=== PATIENT | female | born 1990 | race Caucasian/White ===

== ENCOUNTER → 2019-03-11 15:01 | Outpatient (CLI) | payer OTHER, SELFPAY ==
[2019-03-11 15:35] LABS: Appearance Urine UA SL CLOUDY; Bilirubin Urine UA NEGATIVE (NEGATIVE); Color Urine UA YELLOW; Glucose Urine UA NEGATIVE (Negative); Ketones Urine UA NEGATIVE (NEGATIVE); Leukocyte Esterase Urine UA NEGATIVE (NEGATIVE); Nitrite Urine UA NEGATIVE (Negative); Occult Blood Urine UA NEGATIVE (Negative); Protein Urine UA NEGATIVE (Negative); Urobilinogen Urine UA 0.2 E.U./dL (0.2)
[2019-03-11 15:41] LABS: pH Urine UA 5.5 (4.5-8.0)
[2019-03-11 15:42] LABS: Bacteria Urine Moderate (10-30); RBC Urine 1-5/HPF (0-5/HPF); Squamous Epithelial Cell Urine >30 /HPF (0-5/HPF); Transitional Epi Cells Urine 1-5/HPF (0-5/HPF); Urine Comments NOT A CLEAN CATCH; WBC Urine 1-5/HPF (0-5/HPF)
[2019-03-11 15:44] LABS: Add Manual Diff / Slide Review NO; Basophils Absolute Auto 0 /uL (0-100); Basophils Percent Auto 0.5 % (0-2); Eosinophils Absolute Auto 100 /uL (0-450); Eosinophils Percent Auto 1.1 % (2-4); Hematocrit 41.7 % (36-46); Hemoglobin 14.3 g/dL (12.0-16.0); Lymphocytes Absolute Auto 2000 /uL (1100-4500); Lymphocytes Percent Auto 25.1 % (25-40); Mean Corpuscular HGB Conc 34.4 % (30-36); Mean Corpuscular Hemoglobin 31.3 PG (26-34); Mean Corpuscular Volume 91.1 fL (80-100); Monocytes Absolute Auto 400 /uL (0-900); Monocytes Percent Auto 5.3 % (3-14); Neutrophils Absolute Auto 5500 /uL (1500-7000); Platelet Count 193 X10^3/uL (150-400); Red Blood Cell Count 4.58 X10^6/uL (4.0-5.2); Red Cell Distribution Width 13.1 % (11.6-14.8); White Blood Cell Count 8.1 X10^3/uL (4.5-11.0)
[2019-03-11 16:47] LABS: Hepatitis B Surface Antigen NEGATIVE s/c (NEGATIVE)
[2019-03-11 17:04] LABS: HIV 1 & 2 Ab/Ag 4th Gen Combo NEGATIVE (NEGATIVE); Hep C Virus Ab w/Reflex Quant NEGATIVE s/c (NEGATIVE)
[2019-03-13 17:38] LABS: RPR Screen Nonreactive (Nonreactive)
== END ==
PROVIDERS: Visit Provider Family Medicine
DX: Z34.81 Encounter for supervision of other normal pregnancy, first trimester (principal)
CPT/HCPCS: 36415; 80055; 81001; 86787; 86803; 86850; 86900; 86901; 87086; 87389

== ENCOUNTER → 2019-05-24 13:33 | Outpatient (CLI) | payer OTHER, SELFPAY ==
--- NOTE | 2019-05-24 13:36 | DI.US.S_ITS ---
PROCEDURE: US OB >= 14 WEEKS FETUS INDICATIONS: ANATOMY OUTSIDE/PRIOR DATING DATA: Last menstrual period (LMP): Unknown. LMP-based estimated date of delivery (HARDEEP): Unknown. First dating scan (date and location): 05/20/19 Estimated date of delivery (HARDEEP) from first dating scan: 10/11/19. TECHNIQUE: Real-time scanning was performed of the fetus, with image documentation and biometric measurements. Endovaginal scanning: Not performed COMPARISON: None. FINDINGS: General: A single living intrauterine gestation is present. Presentation: Breech. Placenta: Placental position is posterior, without previa. Amniotic fluid index: 12.4 cm, normal range is 5-24 cm. heart rate: 152 beats per minute. Maternal cervical canal: 4.5 cm long. Normal lower limit is 2.5 cm. biometrics: Biparietal diameter: 4.6 cm, 19 weeks 6 days Head circumference: 17.4 cm, 19 weeks 6 days Abdominal circumference: 15.0 cm, 20 weeks 2 days Femur length: 2.1 cm, 19 weeks 5 days Estimated gestational age from initial scan: not applicable. Composite gestational age from present scan: 20 weeks zero days Estimated weight and percentile: 324 g Measurement variability for biometric dating: +/- 7 days from 14 weeks to 15 weeks 6 days gestation, +/- 10 days from 16 weeks to 21 weeks 6 days gestation, +/- 2 weeks from 22 weeks to 27 weeks 6 days gestation, +/- 3 weeks for 28 weeks gestation or later. weight reference: 4500 g or EFW >90/95% is considered macrosomia or large for gestational age. EFW <10% is small for gestational age. EFW 5% or less is considered intra-uterine growth restriction. Anatomic survey: Neuro: Ventricles are non-dilated at less than 10 mm. Cisterna magna is normal at 3-11 mm. Cerebellum is normal in size and morphology. Nuchal skin fold: Normal at less than 6 mm between 14-21 weeks gestational age. Face: Nose and lips, facial profile are normal. Spine: No evidence for spina bifida. Heart: 4-chambered heart is present, with normal ventricular outflow tracts. Diaphragm: Diaphragm is intact. Stomach: Left-sided stomach is present. Kidneys: No hydronephrosis. Normal is less than 5 mm in 2nd trimester, less than 7 mm in 3rd trimester. Cord: 3-vessel cord has orthotopic insertion. Bladder: Normal in size. Extremities: All 4 extremities identified. IMPRESSION: Single living intrauterine fetus in breech presentation. Gestational age measures 20 weeks and zero days by today's ultrasound measurements. Growth assessment precluded by lack of first trimester ultrasound or LMP. nose/lips not well seen secondary to gestational position. sacral spine not well seen also due to position. Recommend followup. Nonspecific intraventricular echogenic focus. Recommend correlation with aneuploidy screening results and maternal risk factors. Remaining anatomic survey within normal limits Dictated by: Rupert Yeh M.D. on 05/24/2019 at 17:27 Approved by: Rupert Yeh M.D. on 05/24/2019 at 17:31
== END ==
PROVIDERS: Visit Provider Family Medicine
DX: Z34.82 Encounter for supervision of other normal pregnancy, second trimester (principal); Z3A.20 20 weeks gestation of pregnancy
CPT/HCPCS: 76811

== ENCOUNTER → 2019-07-16 10:38 | Outpatient (CLI) | payer OTHER, SELFPAY ==
[2019-07-16 13:14] LABS: Hematocrit 38.2 % (36-46); Hemoglobin 12.7 g/dL (12.0-16.0)
[2019-07-16 15:22] LABS: GTT (PREG) 1 Hour PP 50gm Dose 95 mg/dL (76-139)
== END ==
PROVIDERS: PCP Family Medicine; Referring Provider Family Medicine; Visit Provider Family Medicine
DX: Z34.81 Encounter for supervision of other normal pregnancy, first trimester (principal); Z3A.26 26 weeks gestation of pregnancy
CPT/HCPCS: 36415; 82950; 85014; 85018

== ENCOUNTER → 2019-09-10 12:28 | Outpatient (CLI) | payer OTHER, SELFPAY ==
[2019-09-11 12:05] LABS: Strep Grp B PCR POS for Grp B Strep
== END ==
PROVIDERS: PCP Family Medicine; Visit Provider Family Medicine
DX: Z34.83 Encounter for supervision of other normal pregnancy, third trimester (principal)
CPT/HCPCS: 87653

== ENCOUNTER 2019-10-13 18:17 | Inpatient (IN) | payer OTHER, SELFPAY ==
[2019-10-13 19:06] LABS: Add Manual Diff / Slide Review NO; Basophils Absolute Auto 100 /uL (0-100); Basophils Percent Auto 0.5 % (0-2); Eosinophils Absolute Auto 100 /uL (0-450); Eosinophils Percent Auto 0.9 % (2-4); Hematocrit 38.7 % (36-46); Hemoglobin 13.1 g/dL (12.0-16.0); Lymphocytes Absolute Auto 3100 /uL (1100-4500); Lymphocytes Percent Auto 25.1 % (25-40); Mean Corpuscular HGB Conc 33.9 % (30-36); Mean Corpuscular Hemoglobin 31.8 PG (26-34); Mean Corpuscular Volume 93.6 fL (80-100); Monocytes Absolute Auto 900 /uL (0-900); Monocytes Percent Auto 7.2 % (3-14); Neutrophils Absolute Auto 8200 /uL (1500-7000); Neutrophils Percent Auto 66.3 % (50-75); Platelet Count 156 X10^3/uL (150-400); Red Blood Cell Count 4.14 X10^6/uL (4.0-5.2); Red Cell Distribution Width 13.3 % (11.6-14.8); White Blood Cell Count 12.4 X10^3/uL (4.5-11.0)
[2019-10-13] MEDS: LACTATED RINGERS 1,000 ML 100 ML IV (19:49)
[2019-10-13] MEDS: PENICILLIN G POTASSIUM 5,000,000 UNIT in DEXTROSE 5% IN WATER 250 ML IV (19:49)
[2019-10-13 20:46] VITALS: BP 138/87
[2019-10-13] MEDS: miSOPROStoL 25 MCG TABLET VAG (21:10)
[2019-10-13 21:51] LABS: COVID19 -Nasal RAPID Negative (Negative)
[2019-10-14] MEDS: PENICILLIN G POTASSIUM 3,000,000 UNIT/50 ML FROZ.PIGGY 100 UNIT IV ×4 (00:16→13:35)
[2019-10-14] MEDS: miSOPROStoL 25 MCG TABLET VAG ×2 (00:59→05:00)
[2019-10-14] MEDS: ONDANSETRON 4 MG/2 ML INJ IV (01:16)
--- NOTE | 2019-10-14 08:33 | PM.OBHP.1 ---
OB HPI Date/Time Date of admission: 10/13/19 Date Patient Seen: 10/14/19 Time Patient Seen: 08:00 History of Present Condition Chief complaint: EVAL OF LABOR : 2 Para: 1 Estimated Date of Delivery: 10/06/19 Estimated Gestational Age (weeks): 41w1d Narrative: Kaur Bedolla is a 29 year old at 41w1d who presented for IOL for post-dates. She denies any contractions, only mild intermittent cramping. No LOF or vaginal bleeding. She is feeling her baby move regularly. Her has been uncomplicated. Indications Indication for induction OB: post dates History of Present care: initiated at week # (10) and pounds weight gain (66) Ultrasounds: normal 1st trimester US and normal mid trimester US Obstetrical complications: none Medical complications: none Preadmission Labs Blood type: A (+) positive -: Antibody screen: negative, GBS status: positive, HBsAG: negative, HIV: negative and RPR/VDLR: negative -: Rubella: immune and Varicella: immune HCT: 38.7 HCAB: negative 1 hr GTT: 95 Prior (ies) History: 05/31/12 - at 40wks, 7lb8oz male ([place]), IOL Evaluation Evaluation Baseline heart rate: 150 Variability: Moderate (11-25) monitor accelerations: Present monitor decelerations: Absent Contraction Frequency (minutes): 5 Uterine Contraction Intensity: Mild Category of Tracing: I Cervical dilation (cm): 3 Cervical effacement (%): 80 station: -2 Laboratory results: Laboratory Tests 10/13/19 10/13/19 10/13/19 18:50 18:50 19:05 WBC 12.4 H RBC 4.14 Hgb 13.1 Hct 38.7 MCV 93.6 MCH 31.8 MCHC 33.9 RDW 13.3 Plt Count 156 Neut % (Auto) 66.3 Lymph % (Auto) 25.1 [place] % (Auto) 7.2 Eos % (Auto) 0.9 L Baso % (Auto) 0.5 Neut # (Auto) 8200 H Lymph # (Auto) 3100 [place] # (Auto) 900 Eos # (Auto) 100 Baso # (Auto) 100 COVID-19 PCR Negative Blood Type A Positive Antibody Screen Negative [facility] Medical History (Updated 04/08/19 @ 19:41 by Candelaria Roa) Chicken pox (Resolved ~1996) Hearing loss (Acute) Irregular menstrual cycle (Acute ~2013) Psoriasis (Acute) Surgical History (Updated 04/08/19 @ 19:41 by Candelaria Roa) Anesthesia (Resolved) H/O foot surgery (Acute) History of tonsillectomy and adenoidectomy (Acute) S/P ear surgery (Acute) Family History (Updated 03/11/19 @ 13:08 by Wanda Ruggiero RN) Mother Diabetes mellitus Hypothyroid Father Hypertension Social History (Updated 03/11/19 @ 14:03 by Yancy Maldonado LPN) marital status: number of children: 2 household members: spouse pets and animals: Yes (X 2 Dogs) education level: college (some College) occupational status: employed ([employer]) current occupational exposures/hazards: No special blayne needs: No seatbelt use: always helmet use: Yes water heater temp set < 120 deg: Yes working smoke detector in home: Yes fire extinguisher in home: Yes carbon monox detector in home: Yes firearms in home: Yes do you feel safe at home: Yes Smoking Status: Never smoker Tobacco: How many years used: 6 second hand exposure: No alcohol intake: former (years ago) substance use type: does not use during the past year weight has: remained stable well-balanced diet: daily or most days daily servings fruits/ve or more times/day caffeine: Yes eating out: rarely or never Type(s) of exercise: walking frequency: 3-4 times per week duration: 30-45 minutes/day Meds Home Medications and Allergies Home Medications Medication Instructions Recorded Confirmed Type prenat.vits,livan,jgd-xvhl-ofopl 1 tab PO DAILY 03/11/19 10/13/19 History calcium carbonate 200 mg calcium 200 mg PO TID 09/17/19 10/13/19 History (500 mg) chewable tablet Allergies Allergy/AdvReac Type Severity Reaction Status Date / Time No Known Drug Allergies Allergy Verified 10/08/19 09:48 Exam Narrative Exam Narrative: Gen: NAD, sitting comfortably in bed, appears well CV: RRR, no murmurs Resp: clear to auscultation bilaterally Abd: soft, nondistended, gravid Ext: trace edema Objective Labs Result Diagrams: 10/13/19 18:50 Labs: Laboratory Results - last 24 hr 10/13/19 10/13/19 10/13/19 18:50 18:50 19:05 WBC 12.4 H RBC 4.14 Hgb 13.1 Hct 38.7 MCV 93.6 MCH 31.8 MCHC 33.9 RDW 13.3 Plt Count 156 Neut % (Auto) 66.3 Lymph % (Auto) 25.1 [place] % (Auto) 7.2 Eos % (Auto) 0.9 L Baso % (Auto) 0.5 Neut # (Auto) 8200 H Lymph # (Auto) 3100 [place] # (Auto) 900 Eos # (Auto) 100 Baso # (Auto) 100 COVID-19 PCR Negative Blood Type A Positive Antibody Screen Negative Assessment and Plan Assessment and Plan Assessment and Plan narrative: 29yo at 41w1d here for IOL for post-dates. uncomplicated. GBS positive, Rh positive. Received 3 doses cytotec overnight. Fay score 8. - Expectant management, anticipate - Epidural for pain control when desired - FHT reassuring - GBS positive, penicillin prophylaxis initiated - Start pitocin, titrate as tolerated. Plan to AROM once head more engaged.
[2019-10-14] MEDS: OXYTOCIN PREMIX 30 UNIT/500 ML PLAST..BAG IV (09:25)
--- NOTE | 2019-10-14 14:09 | PM.OBPNLAB ---
Date/Time Date Patient Seen: 10/14/19 Time Patient Seen: 12:30 Pain Control Pain control: tolerating well Pelvic Exam Dilation (cm): 3 Effacement (%): 80 station: -2 Contractions Monitor mode: External Pitocin rate (mU/min): 10 Contraction frequency (min): 3 Contraction pattern: Irregular Contraction intensity: Mild Status Heart Rate Baseline: 145 Monitor Accelerations: Present Monitor Decelerations: Absent Monitor Variability: Moderate Assessment and Plan Comments: 29yo at 41w1d here for IOL for post-dates. uncomplicated. GBS positive, Rh positive. Received 3 doses cytotec overnight, now on pitocin. SROM with clear fluid present. - Expectant management, anticipate - Epidural for pain control when desired - FHT reassuring - GBS positive, penicillin prophylaxis ongoing - Continue pitocin, titrate as tolerated.
[2019-10-14] MEDS: LACTATED RINGERS 1,000 ML 100 ML IV (14:24)
--- NOTE | 2019-10-14 16:41 | P.PNOB_ITS ---
Date/Time Date Patient Seen: 10/14/19 Time Patient Seen: 16:41 Pain Control Pain control: epidural Pelvic Exam Dilation (cm): 10 Effacement (%): 100 station: +1 Comments: After informed consent, AROM performed with production of meconium- stained fluid. Contractions Monitor mode: External Pitocin rate (mU/min): 14 Contraction frequency (min): 2 Contraction pattern: Irregular Contraction intensity: Mild Status status: Category l Heart Rate Baseline: 120 Monitor Accelerations: Present Monitor Decelerations: Absent Monitor Variability: Moderate Assessment and Plan Comments: 29yo at 41w1d here for IOL for post-dates. uncomplicated. GBS positive, Rh positive. Received 3 doses cytotec overnight, now on pitocin. SROM with clear fluid present, now with AROM of forebag with meconium present. - Expectant management, anticipate - Epidural in place for pain control - FHT reassuring - GBS positive, penicillin prophylaxis ongoing - Continue pitocin, titrate as tolerated.
--- NOTE | 2019-10-14 18:42 | P.PCNOB_ITS ---
Labor & Delivery Delivery date: 10/14/19 Intrapartal events: None Cervical ripening method: per misoprostal protocol Induction method: per pitocin protocol Delivery augmentation: rupture of membranes Delivery monitor: external FHT Route of delivery: Episiotomy description: None L&D Laceration Description: Labial Estimated blood loss (mL): 200 Anesthesia type: Epidural Complications: None Narrative: PROCEDURE: at 41w0d presented for post-dates IOL and was admitted to Labor and Delivery. The patient progressed through the 1st stage over 5 hours. She received 3 doses of cytotec, and was then started on pitocin. The pt had SROM with production of a small amount of fluid, and later AROM of a forebag with significant meconium-stained fluid. Pain was controlled with an epidural. She received adequate GBS prophylaxis with penicillin. The patient progressed through the 2nd stage over 20 minutes and delivered a viable female with APGARs 8/9 at 18:05 via without complications. The perineum and vagina were inspected with bilateral labial lacerations repaired with 3-O Chromic. PREPROCEDURE DIAGNOSIS: Intrauterine at 41w0d GBS positive RH positive POSTPROCEDURE DIAGNOSIS: Intrauterine at 41w1d, delivered Same as preprocedure ROM APPEARANCE: Meconium BABY A WEIGHT: 9lb12.7oz BABY A NUCHAL CORD: None PLACENTA DELIVERY TIME: 18:25 PLACENTA APPEARANCE: Intact [place] Baby 1: gender: Female Presentation: vertex position: Right Occiput Anterior Placenta delivery description: Spontaneous cord vessel description: 3 Vessels score (1 min): 8 score (5 min): 8 Plan for aftercare: Normal care
[2019-10-14] MEDS: ACETAMINOPHEN 325 MG TABLET 650 MG PO (21:33)
[2019-10-14] MEDS: IBUPROFEN 600 MG TABLET PO (21:33)
[2019-10-14] MEDS: DERMOPLAST SPRAY 20% 60 ML 1 SPRAY TOP (21:34)
[2019-10-14] MEDS: LANOLIN OINT 7 GM 1 APPLIC TOP (21:34)
[2019-10-15] MEDS: ACETAMINOPHEN 325 MG TABLET 650 MG PO ×3 (04:35→17:25)
[2019-10-15] MEDS: IBUPROFEN 600 MG TABLET PO ×3 (04:35→17:25)
[2019-10-15] MEDS: PRENATAL VIT,CALC/IRON/FOLIC 1 TABLET 1 TAB PO (09:50)
--- NOTE | 2019-10-15 13:23 | P.DS_ITS ---
Discharge Providers Provider Date of admission: 10/13/19 18:17 Discharge Date: 10/15/19 Primary care physician: Nedra Huang MD Consults: 10/15/19 18:41 Consult to [employer] Routine Comment: Discharge provider: Tonya Ojeda MD Summary Hospital Course Date Patient Seen: 10/15/19 Time Patient Seen: 08:00 Procedures: Spontaneous vaginal delivery Hospital Course: The pt presented for IOL due to post-dates at 41w0d. She received 3 doses of cytotec and then pitocin, and progressed to complete. AROM was performed with production of meconium-stained fluid. She had an epidural for pain control. She had a spontaneous vaginal delivery of a viable female infant on 10/13 at 18:05. Bilateral labial lacerations were then repaired. She tolerated delivery well. there were no complications. At the time of discharge she was voiding, ambulating, and passing flatus without difficulty. Her lochia was decreasing appropriately. Her pain was well controlled. She is breast feeding with good latch. She will follow-up in clinic in 6 weeks for her check. She is undecided regarding control but has used natural methods in the past. Peripartum Data Delivery Method: Natural Vaginal Laceration description: Labial Episiotomy description: None Procedures: Spontaneous vaginal delivery complications: none Gideon 1: Gender: Female Disposition of : home Time Spent with Patient Time attestation: Total time spent providing and/or coordinating discharge services: Time spent: Greater than 30 minutes Objective Labs Result Diagrams: 10/13/19 18:50 Exam Narrative Exam Narrative: Gen: NAD, sitting comfortably in bed, appears well CV: RRR, no murmurs Resp: clear to auscultation bilaterally Abd: soft, nontender, nondistended, normoactive bowel sounds, fundus firm and below the umbilicus Ext: trace edema Discharge Plan Discharge Plan Patient Disposition: Home Discharge orders & Medications Prescriptions: New acetaminophen 325 mg Tablet 650 mg PO Q6HR PRN (Reason: Pain, Mild (1-3)) Qty: 30 RF: 0 Dermoplast (with menthol) 20-0.5 % Aerosol 1 spray topical Q1HR PRN (Reason: perineal pain) Qty: 54 RF: 0 ibuprofen 600 mg Tablet 600 mg PO Q6HR PRN (Reason: Pain, Mild (1-3)) Qty: 30 RF: 0 [id number] Cream 1 applic topical PRN PRN (Reason: Tenderness) Qty: 15 RF: 0 Continued calcium carbonate [Tums] 200 mg calcium (500 mg) tablet,chewable 200 mg PO TID RF: 0 prenat.vits,livan,[id number] Tablet 1 tab PO DAILY RF: 0 Follow up/Referrals: Nedra Huang MD [Primary Care Provider] - Tonya Ojeda MD [Physician] - 6 Weeks Diet/Activity/Treatments Diet: Diet as Tolerated and Regular Skin/Wound/Dressing Care Report to your healthcare provider any signs of infection, such as:: chills, fever, increased pain and unusual drainage Visit Report/Discharge Packet Instructions: DI for Labor and Delivery, Vaginal Visit Report Forms: Patient Portal/API, Stroke Signs & Symptoms Discharge Data Primary Care Provider: Nedra Huang
[2019-10-15 16:15] VITALS: BP 124/67; PULSE 59; RESP 18; TEMP 36.7
== END 2019-10-15 18:09 | disposition home or self-care (01) | DRG 807 ==
PROVIDERS: Admitting Provider Family Medicine; PCP Family Medicine; Referring Provider Family Medicine; Visit Provider Family Medicine
DX: O48.0 Post-term pregnancy (principal); Z37.0 Single live birth; Z3A.41 41 weeks gestation of pregnancy; O99.824 Streptococcus B carrier state complicating childbirth; O77.0 Labor and delivery complicated by meconium in amniotic fluid; O70.0 First degree perineal laceration during delivery; Z11.59 Encounter for screening for other viral diseases
CPT/HCPCS: 01967; 59050; 59200; 59515; 85025; 86850; 86900; 86901; 87635; G0379; J2405; J2540; J2590

== ENCOUNTER → 2019-10-18 12:44 | Outpatient (CLI) | payer OTHER, SELFPAY ==
--- NOTE | 2019-10-18 12:45 | DI.US.S_ITS ---
PROCEDURE: US PERIPH VENOUS LOW EXTREM RT INDICATIONS: RT LEG SWELLING TECHNIQUE: Real-time imaging, as well as color and pulse Doppler interrogation, were performed of the lower extremity deep veins from the inguinal ligament to the popliteal fossa. COMPARISON: None. FINDINGS: The common femoral, femoral and popliteal veins are normally compressible, and free of intraluminal thrombus. Color and pulse Doppler demonstrate normal phasic intraluminal flow. There is normal augmentation response to distal compression maneuver. Anterior foot soft tissue edema IMPRESSION: No evidence of deep venous thrombosis. Dictated by: Rupert Yeh M.D. on 10/18/2019 at 13:37 Approved by: Rupert Yeh M.D. on 10/18/2019 at 13:37
== END ==
PROVIDERS: PCP Family Medicine; Referring Provider Family Medicine; Visit Provider Family Medicine
DX: O99.89 Other specified diseases and conditions complicating pregnancy, childbirth and the puerperium (principal); R22.41 Localized swelling, mass and lump, right lower limb
CPT/HCPCS: 93971